=== PATIENT | male | born 2000 | race Caucasian/White ===

== ENCOUNTER 2022-05-24 13:52 | Emergency (ER) | payer OTHER ==
[~2022-05-24] VITALS: Ht 167.6 cm; Wt 69.9 kg
[2022-05-24 14:01] VITALS: BP 85/67
--- NOTE | 2022-05-24 14:31 | NUR ---
22 Y/O MALE BIBA FROM [facility], PER EMS PT WAS ALOC, PT NOTED TO A/OX4, STATING THAT THE DIRECTOR OF DIETARY TOOK HIS NICOTINE VAPE, AND PROZAC. NOTED TO BE AGITATED, DENIES ANY SI/HI. DENIES ANY HALLUCINATIONS, DELUSIONS ALLERGY: NKA PMH: SCHIZOPHRENIA AND BIPOLAR
--- NOTE | 2022-05-24 15:18 | NUR ---
PT ON TELEPSYCH CALL W/ MD LUEVANO
--- NOTE | 2022-05-24 15:28 | NUR ---
PER MD LUEVANO, PT OK TO D/C. PHILLIP MADE AWARE
--- NOTE | 2022-05-24 15:40 | NUR ---
The patient's care was reviewed and supervised by Enedina Flores RN.
--- NOTE | 2022-05-24 15:40 | NUR ---
Patient discharged with v/s stable. Written and verbal after care instructions FOR SUBSTANCE USE DISORDER given and explained. Patient verbalized understanding. Ambulatory with steady gait. All questions addressed prior to discharge. Advised to follow up with PMD.
== END 2022-05-24 15:40 | disposition home or self-care (01) ==
LOC: MED 13:52
DX: F19.90 Other psychoactive substance use, unspecified, uncomplicated (principal); R45.1 Restlessness and agitation; F32.9 Major depressive disorder, single episode, unspecified; F41.9 Anxiety disorder, unspecified; F20.9 Schizophrenia, unspecified
CPT/HCPCS: 99285